=== PATIENT | male | born 1960 | race Caucasian/White ===

== ENCOUNTER 2016-09-13 05:21 | Emergency (ER) | payer BC ==
--- NOTE | 2016-09-13 06:21 | ED Physician Documentation ---
Dizziness - HISTORIAN Historian: patient - HPI Stated Complaint: dizziness Chief Complaint: Dizziness Additional Information: felt funny, like he was going to fall over. is taking new meds, clindamycin, hydrocodone, tramadol. no other symptoms. Timing: sudden onset Duration: intermittent episodes, noted on awakening Severity: mild Associated Symptoms: sweating, light headedness Decreased Ability to Stand/ Walk: off balance Usually: walks w/o assistance Worsened By: nothing Further Comments: no - ROS CONST: recent illness (infection in foot) EYES/ENT: none GI/: none MS/SKIN/LYMPH: none NEURO/PSYCH: none CVS/RESP: none - PAST HX Past History: hypertension Immunizations: UTD Allergies/Adverse Reactions: Allergies Allergy/AdvReac Type Severity Reaction Status Date / Time No Known Allergies Allergy Verified 09/13/16 05:31 Home Medications: Ambulatory Orders Medication Instructions Recorded Amlodipine Besylate [Amlodipine 5 mg PO D 09/13/16 Besylate] Clindamycin HCl [Clindamycin HCl] 300 mg PO Q6 09/13/16 HYDROcodone /APAP 5/325 [[place] 1 tab PO Q6 PRN 09/13/16 5/325] Hydroxychloroquine Sulfate 400 mg PO D 09/13/16 [Hydroxychloroquine Sulfate] Leflunomide [Leflunomide] 20 mg PO D 09/13/16 Losartan Potassium [Losartan 100 mg PO D 09/13/16 Potassium] Sulfasalazine [Sulfasalazine] 1,000 mg PO AM 09/13/16 Sulfasalazine [Sulfasalazine] 500 mg PO HS 09/13/16 Tramadol HCl [Ultram] 50 mg PO Q6 PRN 09/13/16 - SOCIAL HX Smoking History: cigarettes Alcohol Use: none Drug Use: none - FAMILY HX Family History: none - VITAL SIGNS Vital Signs: Vital Signs Temp Pulse Resp BP Pulse Ox 98.2 F 82 14 157/86 99 09/13/16 05:22 09/13/16 05:22 09/13/16 05:22 09/13/16 05:22 09/13/16 05:22 - REVIEWED ASSESSMENTS Nursing Assessment Reviewed: Yes Vitals Reviewed: Yes ED Results Lab/Radiology - Radiology Radiology Impressions: ct head normal - Orders Orders: ED Orders Category Date Time Status Place Saline Lock/IV Now Care 09/13/16 06:[address] BRAIN W/O CONTRAST Stat Exams 09/13/16 06:16 Ordered CBC/PLATELET/DIFF Routine Lab 09/13/16 Ordered CMP Routine Lab 09/13/16 Ordered URINALYSIS Routine Lab 09/13/16 Ordered Oxygen Daily Oxygen 09/13/16 06:30 Ordered Dizziness Physical Exam - Physical Exam General Appearance: no distress EENT: no signs of dehydration, nystagmus Neck: normal inspection, thyroid normal, supple. No: carotid bruit Respiratory: no respiratory distress, breath sounds nml, chest non-tender CVS: reg rate & rhythm, heart sounds normal, no murmur Abdomen: soft Skin: warm/dry Neuro: nml orientation, nml speech, nml cognition, mood/affect nml, depressed affect / mood Extremities: non-tender, normal range of motion Cranial: nml as tested, no evidence of acute CVA Cerebellar: nml as tested Sensorimotor: motor nml, sensation nml. No: weakness Discharge Clincal Impression: Dizziness, Drug reaction Vestibular neuronitis Qualifiers: Laterality: unspecified laterality Qualified Code(s): H81.20 - Vestibular neuronitis, unspecified ear Home Medications: Ambulatory Orders Amlodipine Besylate [Amlodipine Besylate] 5 mg PO D 09/13/16 Clindamycin HCl [Clindamycin HCl] 300 mg PO Q6 09/13/16 HYDROcodone /APAP 5/325 [[place] 5/325] 1 tab PO Q6 PRN 09/13/16 Hydroxychloroquine Sulfate [Hydroxychloroquine Sulfate] 400 mg PO D 09/13/16 Leflunomide [Leflunomide] 20 mg PO D 09/13/16 Losartan Potassium [Losartan Potassium] 100 mg PO D 09/13/16 Sulfasalazine [Sulfasalazine] 1,000 mg PO AM 09/13/16 Sulfasalazine [Sulfasalazine] 500 mg PO HS 09/13/16 Tramadol HCl [Ultram] 50 mg PO Q6 PRN 09/13/16 Condition: Stable Disposition: 01 HOME, SELF-CARE Decision to Admit: NO Date of Decison to Admit: 09/13/16 Decision Time: 06:52
[2016-09-13 06:36] LABS: BASOPHILS % 0.8 (0.0-1.5); EOSINOPHILS % 4.1 % (0.0-6.8); MEAN CORPUSCULAR HEMOGLOBIN 29.2 pg (28.0-34.0); MEAN CORPUSCULAR VOLUME 90.6 fl (80.0-100.0); MONOCYTES % 4.2 % (0.0-11.0); NEUTROPHILS # 3.6 # k/uL (1.4-7.7)
[2016-09-13 06:50] LABS: eGFR (African) > 60; eGFR (Non-African) > 60
[2016-09-13 07:09] VITALS: BP 154/83
--- NOTE | 2016-09-13 13:52 | Diagnostic Imaging Report ---
CHRIS ZENG [facility] [address] [facility] [address] [place], [place]. [address] Report Submission Date: Sep 13, 2016 6:42:08 AM CDT Patient Study Name: DALJIT LEYVA Date: Sep 13, 2016 6:23:45 AM CDT Modality Type: CT\SR Gender: M Description: CT BRAIN W/O CONTRAST : 56 Institution: [facility] Physician: CHRIS ZENG CT brain History: DIZZY, STARTED THIS AM WHEN HE WOKE UP, NO COMPLAINT HAVE HEADACHES Top the * axial images of the brain are submitted Findings: Comparison studies No evidence of acute intracranial hemorrhage. No midline shift. No hydrocephalus. Left sphenoid sinus partially opacified. Mastoid air cells are well aerated Impression: No evidence of acute intracranial hemorrhage. No midline shift. No hydrocephalus [place] white matter differentiation is maintained Periventricular small vessel ischemic disease Left sphenoid sinusitis Electronically signed on Sep 13, 2016 6:42:08 AM CDT by: Tess DELA CRUZ
== END 2016-09-13 07:02 | disposition home or self-care (01) ==
LOC: ED 05:21
DX: H81.20 Vestibular neuronitis, unspecified ear (principal); R42 Dizziness and giddiness
CPT/HCPCS: 70450; 80053; 85025; 99283; S1016